=== PATIENT | male | born 1995 | race Hispanic/Latino ===

== ENCOUNTER 2020-04-01 17:03 | Inpatient (IN) | payer SELFPAY ==
[~2020-04-01 17:03] MED LIST: Dexamethasone 20 MG/5 ML VIAL ONE; Iopamidol-370 76% 500 ML 1 ML ONE; Ondansetron PF 4 MG/2 ML Vial ONE; PROPOFOL 200 MG/20 ML VIAL ONE; Succinylcholine Chloride 20 MG/ML 10 ml SYRINGE FS ONE
[2020-04-01] MEDS ORDERED: Fentanyl 100 MCG/2 ML VIAL ONE (17:08)
[2020-04-01] MEDS ORDERED: Lorazepam 2 MG/ML VIAL ONE (17:21)
[2020-04-01 17:31] LABS: Hemoglobin 15.4 g/dL (14.0-18.0); Mean Corpuscular HGB CONC 34.4 g/dL (32.0-36.0); Mean Corpuscular Hemoglobin 31.6 pg (27.0-31.0); Mean Corpuscular Volume 91.7 fL (78.0-98.0); Mean Platelet Volume 8.7 fL (7.4-10.4); Platelet Count 378 thou/uL (130-400); RBC Distribution Width 11.3 % (11.5-14.5); Red Blood Cell (RBC) Count 4.87 mill/uL (4.70-6.10); White Blood Cell (WBC) Count 21.7 thou/uL (4.8-10.8)
--- NOTE | 2020-04-01 17:40 | RAD ---
PORTABLE SUPINE CHEST: Date: 04-01-2020 Provided Clinical History: Pre-op. FINDINGS: Cardiac and mediastinal silhouette is within normal limits. No focal consolidation evident. The supin e nature of the study is not sensitive for detection of pleural fluid or pneumothorax, without eviden ce for such. The bony thorax appears grossly intact. IMPRESSION: No evidence for an acute cardiopulmonary process. POS: ADAM
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
--- NOTE | 2020-04-01 17:44 | RAD ---
TWO VIEWS LEFT FEMUR: Date: 04-01-2020 Provided Clinical History: Trauma FINDINGS: There is a transversely oriented mildly comminuted fracture of the left proximal femoral diaphysis. T here is medial and posterior displacement of the distal fracture fragment and associated fracture fra gment overriding. No additional fracture is evident. Alignment at the left hip and left knee joints a ppear anatomic. IMPRESSION: Displaced left proximal femoral diaphyseal fracture. POS: ADAM
[2020-04-01 17:45] LABS: ALT (SGPT) 27 U/L (8-55); AST (SGOT) 31 U/L (5-34); Albumin 3.9 g/dL (3.5-5.0); Alkaline Phosphatase 89 U/L (40-110); Anion Gap 15 mmol/L (10-20); BUN (Urea Nitrogen) 7 mg/dL (8.9-20.6); Bilirubin, Total 0.4 mg/dL (0.2-1.2); Calc. Creatinine Clearance 0 mL/min (70-130); Calcium 8.8 mg/dL (7.8-10.44); Carbon Dioxide 21 mmol/L (22-29); Chloride 105 mmol/L (98-107); Estimated GFR-MDRD Greater than 90; Globulin 3.5 g/dL (2.4-3.5); Glucose 104 mg/dL (70-105); Potassium 3.8 mmol/L (3.5-5.1); Protein, Total 7.4 g/dL (6.0-8.3); Sodium 137 mmol/L (136-145)
--- NOTE | 2020-04-01 17:45 | RAD ---
PELVIC RADIOGRAPH: Date: 04-01-2020 Provided Clinical History: Trauma FINDINGS: Displaced left femoral shaft fracture is described on concurrent left femur radiographs. No additiona l fracture is evident. Alignment appear otherwise anatomic. Hip joint spaces appear preserved. IMPRESSION: Partially visualized left femoral shaft fracture. POS: ADAM
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
[2020-04-01] MEDS ORDERED: Adacel (T-DAP) 0.5 ML SYRINGE ONE (17:50)
[2020-04-01 17:53] LABS: Band 35 % (5-11); Lymphocytes 8 % (21-51); MDiff Complete? YES; Monocytes 7 % (0-10); Neutrophil 48 % (42-75); Platelet Morphology Comment Appears Adequate; Polychromasia SLIGHT = 2-3 cells (100X) (0-2/hpf); Reactive Lymphocytes 2 % (0-10)
[2020-04-01 18:01] LABS: Prothrombin Time 13.4 sec (12.0-14.7)
[2020-04-01 18:02] LABS: PTT 22.1 sec (22.9-36.1)
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
[2020-04-01] MEDS ORDERED: Ketorolac Tromethamine 30 MG/ML VIAL ONE (18:25)
[2020-04-01] MEDS ORDERED: Morphine 4 MG/ML VIAL ONE (18:25)
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
[2020-04-01] MEDS ORDERED: Fentanyl 250 MCG/5 ML VIAL ONE (19:25)
[2020-04-01 19:48] LABS: Bilirubin Negative (Negative); Blood, Urine Negative (Negative); Clarity Clear (Clear); Glucose, Urine (Dipstick) Normal (Negative); Leukocyte Negative Leu/uL (Negative); Nitrite Negative (Negative); Protein, Urine (Dipstick) Negative (Neg-Trace); Urobilinogen Normal mg/dL (Less than 2)
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
[2020-04-01] MEDS ORDERED: Ondansetron HCl/PF 4 MG/2 ML Vial IVP PRN (22:10)
[2020-04-01] MEDS ORDERED: PACU-Morphine 4MG/ML VIAL SLOW IVP PRN (22:10)
[2020-04-01] MEDS ORDERED: Promethazine HCl 25 MG/ML VIAL SLOW IVP PRN (22:10)
[2020-04-01] MEDS ORDERED: HYDROmorphone 2 MG/ML VIAL SLOW IVP PRN (22:10)
[2020-04-01] MEDS ORDERED: Meperidine HCl/PF 25 MG/ML VIAL SLOW IVP PRN (22:10)
[2020-04-01] MEDS ORDERED: Morphine Sulfate 2 MG/ML SYRINGE SLOW IVP PRN (22:10)
[2020-04-01] MEDS ORDERED: Ketorolac Tromethamine 30 MG/ML VIAL IVP PRN (22:10)
[2020-04-01] MEDS ORDERED: Promethazine HCl 25 MG/ML VIAL IM PRN (22:10)
[2020-04-01] MEDS ORDERED: Ondansetron PF 4 MG/2 ML Vial IVP PRN (22:43)
[2020-04-01] MEDS ORDERED: Dextrose 50% Abboject 50 ML SYRINGE SLOW IVP PRN (22:43)
[2020-04-01] MEDS ORDERED: Morphine 4 MG/ML VIAL SLOW IVP PRN (22:43)
[2020-04-01] MEDS ORDERED: hydrALAZINE 20 MG/ML VIAL SLOW IVP PRN (22:43)
[2020-04-01] MEDS ORDERED: Ondansetron ODT 4 MG TAB PO PRN (22:43)
[2020-04-01] MEDS ORDERED: Dextrose 5% in Water 1,000 ML IV PRN (22:43)
[2020-04-01 22:56] VITALS: BMI 42.4
[2020-04-01] MEDS: Acetaminophen 325 MG TAB PO SCH (23:08)
[2020-04-01] MEDS: Sodium Chloride 0.9% 1,000 ML IV SCH (23:09)
[2020-04-01] MEDS: Ketorolac Tromethamine 30 MG/ML VIAL IVP SCH (23:15)
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
[2020-04-02] MEDS: Morphine 2 MG/ML SYRINGE SLOW IVP PRN ×3 (00:58→10:24)
[2020-04-02 05:31] LABS: Anion Gap 10 mmol/L (10-20); BUN (Urea Nitrogen) 7 mg/dL (8.9-20.6); Calc. Creatinine Clearance 266 mL/min (70-130); Calcium 8.2 mg/dL (7.8-10.44); Carbon Dioxide 25 mmol/L (22-29); Chloride 107 mmol/L (98-107); Estimated GFR-MDRD Greater than 90; Glucose 113 mg/dL (70-105); Potassium 4.4 mmol/L (3.5-5.1); Sodium 138 mmol/L (136-145)
[2020-04-02] MEDS: Acetaminophen 325 MG TAB PO SCH ×4 (05:42→23:33)
[2020-04-02] MEDS: CEFAZOLIN 2 GM in Premix Bag 1 BAG IVPB SCH ×2 (05:42→12:59)
[2020-04-02] MEDS: Ketorolac Tromethamine 30 MG/ML VIAL IVP SCH ×2 (05:42→11:42)
[2020-04-02 05:50] LABS: #Lymphocytes 1.2 thou/uL (1.20-3.40); #Monocytes 0.7 thou/uL (0.11-0.59); #Neutrophils 9.5 thou/uL (1.40-6.50); %Basophils 0.1 % (0.0-1.0); %Eosinophils 0.2 % (0.0-10.0); %Lymphocytes 10.7 % (21.0-51.0); %Monocytes 6.4 % (0.0-10.0); %Neutrophils 82.7 % (42.0-75.0); Hemoglobin 12.9 g/dL (14.0-18.0); Mean Corpuscular HGB CONC 33.6 g/dL (32.0-36.0); Mean Corpuscular Hemoglobin 31.1 pg (27.0-31.0); Mean Corpuscular Volume 92.7 fL (78.0-98.0); Mean Platelet Volume 8.3 fL (7.4-10.4); Platelet Count 326 thou/uL (130-400); RBC Distribution Width 11.4 % (11.5-14.5); Red Blood Cell (RBC) Count 4.13 mill/uL (4.70-6.10); White Blood Cell (WBC) Count 11.4 thou/uL (4.8-10.8)
--- NOTE | 2020-04-02 07:42 | RAD ---
Exam:Left knee 2 views HISTORY: Left knee ligament injury, femur fracture COMPARISON: None FINDINGS: 2 views left knee demonstrate postsurgical changes. Near anatomic alignment. Preserved join t spaces. No significant joint effusion. IMPRESSION: Postoperative changes.
[2020-04-02] MEDS: Sodium Chloride 0.9% 1,000 ML IV SCH (07:56)
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
[2020-04-02] MEDS: Cyclobenzaprine 10 MG TAB PO PRN ×2 (08:31→20:06)
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
--- NOTE | 2020-04-02 09:58 | RAD ---
TWO VIEWS LEFT FEMUR: DATE: 04/01/2020. PROVIDED CLINICAL HISTORY: ORIF. FINDINGS: Comparison to examination performed earlier same date. Spot fluorosocpic images were obtained in the frontal and lateral planes after open reduction internal fixation of previously described left femor al diaphyseal fracture with associated improved alignment. IMPRESSION: As above. POS: ADAM
[2020-04-02] MEDS: Enoxaparin Sodium 40 MG/0.4 ML SYRINGE SC SCH ×2 (10:10→20:05)
[2020-04-02] MEDS ORDERED: traMADol HCl 50 MG TAB PO PRN (12:55)
[2020-04-02] MEDS ORDERED: Ibuprofen 600 MG TAB PO PRN (12:55)
[2020-04-02] MEDS ORDERED: traMADol HCl 50 MG TAB ONE (13:01)
[2020-04-02] MEDS: traMADol HCl 50 MG TAB PO SCH ×2 (17:23→23:33)
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
[2020-04-02] MEDS: Ibuprofen 600 MG TAB PO SCH (20:05)
[2020-04-02] MEDS: Senokot S 8.6-50 MG TAB PO SCH (20:05)
[2020-04-03] MEDS: Ibuprofen 600 MG TAB PO SCH ×2 (03:26→11:47)
[2020-04-03] MEDS: traMADol HCl 50 MG TAB PO PRN ×2 (03:26→08:54)
[2020-04-03] MEDS: Cyclobenzaprine 10 MG TAB PO PRN ×2 (05:10→12:40)
[2020-04-03] MEDS: Acetaminophen 325 MG TAB PO SCH ×2 (05:10→11:47)
[2020-04-03] MEDS: traMADol HCl 50 MG TAB PO SCH ×2 (05:10→11:47)
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
[2020-04-03] MEDS: Senokot S 8.6-50 MG TAB PO SCH (08:54)
[2020-04-03] MEDS: Enoxaparin Sodium 40 MG/0.4 ML SYRINGE SC SCH (08:55)
[2020-04-03] MEDS ORDERED: Polyethylene Glycol 3350 17 GM Packet PO SCH (09:00)
[2020-04-03 11:12] VITALS: BP 133/84; TEMP 98.1
== END 2020-04-03 15:00 | disposition home or self-care (01) | DRG 481 ==
LOC: ERS 17:03 → SURG A 18:11
PROVIDERS: ADMIT Specialist; ATTEND Specialist
PROC: 0QS906Z Reposition Left Femoral Shaft with Intramedullary Internal Fixation Device, Open Approach (ICD-10-PCS; principal; 2020-04-01)
DX: S72.302A Unspecified fracture of shaft of left femur, initial encounter for closed fracture (principal); S06.0X9A Concussion with loss of consciousness of unspecified duration, initial encounter; Z68.41 Body mass index [BMI] 40.0-44.9, adult; E66.01 Morbid (severe) obesity due to excess calories; I10 Essential (primary) hypertension; V89.2XXA Person injured in unspecified motor-vehicle accident, traffic, initial encounter
CPT/HCPCS: 36415; 70450; 71045; 71260; 72125; 72170; 74177; 76000; 80048; 80053; 81003; 85025; 85610; 85730; 86850; 86900; 86901; 90471; 90715; 94640; 96361; 96374; 96375; C1713; G0390; J0690; J1100; J1650; J1885; J2060; J2270; J2405; J2704; J3010; J7620; Q9967